=== PATIENT | male | born 1975 | race Hispanic/Latino ===

== ENCOUNTER 2020-04-17 21:53 | Day surgery (SDC) | payer SELFPAY ==
[2020-04-17 18:19] LABS: Absolute Lymphocytes (CBC) 2.1 K/uL (0.7-4.9); Basophils % 0.4 % (0-1.3); Hematocrit 48.1 % (39.6-49.0); Lymphocytes % 21.1 % (15.3-44.8); MPV 8.7 fL (7.6-11.3); RBC Red Blood Cell Count 5.43 M/uL (4.33-5.43)
--- NOTE | 2020-04-17 18:33 | RAD REPORT ---
EXAM DESCRIPTION: RAD - Knee Right 3 View - 04/17/2020 6:26 pm CLINICAL HISTORY: Right knee pain status post injury FINDINGS: Anterior laceration superior aspect of the knee No fracture or dislocation No radiopaque foreign body
--- NOTE | 2020-04-17 19:30 | EDPHYS ---
Physician Documentation [facility] Name: Jorge Bruno Age: 44 yrs Sex: Male : 1975 Arrival Date: 04/17/2020 Time: 16:46 Bed 18 Private MD: ED Physician Dieter Holliday HPI: 04/17 20:11 This 44 yrs old Male presents to ER via Wheelchair with complaints of snw Laceration To Leg. 20:11 The patient has a laceration related to: working, saw, occurred outdoors, and cutting snw wood. The laceration(s) is(are) located on the right quadriceps. Onset: The symptoms/episode began/occurred suddenly, just prior to arrival. Associated signs and symptoms: The patient has no apparent associated signs or symptoms. The patient has not experienced similar symptoms in the past. The patient has not recently seen a physician. Historical: - Allergies: 17:18 No Known Allergies; ph - Home Meds: 17:18 None [Active]; ph - PMHx: 17:18 None; ph - PSHx: 17:18 None; ph - Immunization history:: Adult Immunizations unknown. - Social history:: Smoking status: Patient denies any tobacco usage or history of. ROS: 19:30 Constitutional: Negative for fever, chills, and weight loss, Eyes: Negative for injury, snw pain, redness, and discharge, ENT: Negative for injury, pain, and discharge, Neck: Negative for injury, pain, and swelling, Cardiovascular: Negative for chest pain, palpitations, and edema, Respiratory: Negative for shortness of breath, cough, wheezing, and pleuritic chest pain, Abdomen/GI: Negative for abdominal pain, nausea, vomiting, diarrhea, and constipation, Back: Negative for injury and pain, : Negative for injury, bleeding, discharge, and swelling, MS/Extremity: Negative for injury and deformity, Neuro: Negative for headache, weakness, numbness, tingling, and seizure, Psych: Negative for depression, anxiety, suicide ideation, homicidal ideation, and hallucinations. 19:30 Skin: Positive for laceration(s), of the right quadriceps. Exam: 19:30 Constitutional: This is a well developed, well nourished patient who is awake, alert, snw and in no acute distress. Head/Face: Normocephalic, atraumatic. Eyes: Pupils equal round and reactive to light, extra-ocular motions intact. Lids and lashes normal. Conjunctiva and sclera are non-icteric and not injected. Cornea within normal limits. Periorbital areas with no swelling, redness, or edema. ENT: Nares patent. No nasal discharge, no septal abnormalities noted. Tympanic membranes are normal and external auditory canals are clear. Oropharynx with no redness, swelling, or masses, exudates, or evidence of obstruction, uvula midline. Mucous membranes moist. Neck: Trachea midline, no thyromegaly or masses palpated, and no cervical lymphadenopathy. Supple, full range of motion without nuchal rigidity, or vertebral point tenderness. No Meningismus. Chest/axilla: Normal chest wall appearance and motion. Nontender with no deformity. No lesions are appreciated. Cardiovascular: Regular rate and rhythm with a normal S1 and S2. No gallops, murmurs, or rubs. Normal PMI, no JVD. No pulse deficits. Respiratory: Lungs have equal breath sounds bilaterally, clear to auscultation and percussion. No rales, rhonchi or wheezes noted. No increased work of breathing, no retractions or nasal flaring. Abdomen/GI: Soft, non-tender, with normal bowel sounds. No distension or tympany. No guarding or rebound. No evidence of tenderness throughout. Back: No spinal tenderness. No costovertebral tenderness. Full range of motion. Skin: Warm, dry with normal turgor. Normal color with no rashes, no lesions, and no evidence of cellulitis. MS/ Extremity: Pulses equal, no cyanosis. Neurovascular intact. Full, normal range of motion. Large laceration to right distal thigh with avulsed, cut muscle, bleeding controlled Neuro: Awake and alert, GCS 15, oriented to person, place, time, and situation. Cranial nerves II-XII grossly intact. Motor strength 5/5 in all extremities. Sensory grossly intact. Cerebellar exam normal. Normal gait. Psych: Awake, alert, with orientation to person, place and time. Behavior, mood, and affect are within normal limits. Vital Signs: 17:15 BP 148 / 101; Pulse 77; Resp 18; Temp 98.2; Pulse Ox 99% on R/A; ph 18:19 BP 138 / 81; Pulse 79; Resp 16; Pulse Ox 98% ; bp MDM: 18:14 Patient medically screened. snw 19:24 Data reviewed: vital signs, nurses notes. Data interpreted: Pulse oximetry: on room air snw is 98 %. Interpretation: normal. Counseling: I had a detailed discussion with the patient and/or guardian regarding: the historical points, exam findings, and any diagnostic results supporting the discharge/admit diagnosis, radiology results, the need for further work-up and treatment in the hospital, for OR wound wash out and closure. Physician consultation: George Jenkins MD was called at 18:35, was contacted at 18:35, regarding admission, patient's condition, need to come to ED to see patient, would like further tests performed, EKG, Chest x-ray, in the emergency department to see patient at 19:00, OR consent discussed and pt voices understanding. 04/17 18:07 Order name: CBC with Diff; Complete Time: 18:25 snw 04/17 18:07 Order name: Chem 7; Complete Time: 18:36 snw 04/17 18:07 Order name: Knee Right 3 View XRAY; Complete Time: 18:36 snw 04/17 18:56 Order name: Chest Single View; Complete Time: 20:05 EDMS 04/17 18:08 Order name: Consult Surgery-George Jenkins MD (GENERAL SURGERY) sn 04/17 18:50 Order name: EKG - Nurse/Tech; Complete Time: 19:15 Administered Medications: 18:10 Drug: morphine 4 mg Route: IVP; Site: right forearm; bp 22:19 Follow up: Response: No adverse reaction 18:10 Drug: Zofran (Ondansetron) 4 mg Route: IVP; Site: right forearm; bp 22:19 Follow up: Response: No adverse reaction 18:10 Drug: NS 0.9% 1000 ml Route: IV; Rate: 1 bolus; Site: right forearm; bp 22:19 Follow up: Response: No adverse reaction; IV Status: Completed infusion 18:10 Drug: Tetanus-Diphtheria Toxoid Adult 0.5 ml {Fish And Game Warden: Dr. TATTOFF. Exp: 12/30/2021. Lot #: [id number]. } Route: IM; Site: right deltoid; 22:18 Follow up: Response: No adverse reaction 18:10 Drug: Ancef 1 grams Route: IVPB; Site: right forearm; bp 22:18 Follow up: Response: No adverse reaction; IV Status: Completed infusion ah Disposition: 04/17/20 19:30 Hospitalization ordered by George Jenkins for Observation. Preliminary diagnosis is Laceration of adductor muscle, fascia and tendon of right thigh - with probable wood particle contamination from saw. - Bed requested for Operating Room. - Status is Observation. ah - Condition is Stable. - Problem is new. - Symptoms are unchanged. Addendum: 04/22/2020 07:09 Co-signature as Attending Physician, Dieter Holliday MD. m Signatures: Dispatcher [employer] EDOK Rebekah Sharma, APPRENTICE ELECTRICIAN-C APPRENTICE ELECTRICIAN-Csnw Eve Iniguez, RN RN Lang Gonzalez, RN RN Liyah Merrill, RN RN Dieter Earl MD MD [id number] Corrections: (The following items were deleted from the chart) 04/17 18:56 18:50 Chest Pa And Lat (2 Views)+RAD.RAD.BRZ ordered. EDOK EDMS 21:56 19:30 Hospitalization Ordered by George Jenkins MD for Observation. Preliminary diagnosis ah is Laceration of adductor muscle, fascia and tendon of right thigh - with probable wood particle contamination from saw. Bed requested for Operating Room. Status is Observation. Condition is Stable. Problem is new. Symptoms are unchanged. snw
--- NOTE | 2020-04-17 19:30 | ER ---
Nurse's Notes [facility] Name: Jorge Bruno Age: 44 yrs Sex: Male : 1975 Arrival Date: 04/17/2020 Time: 16:46 Bed 18 Private MD: Diagnosis: Laceration of adductor muscle, fascia and tendon of right thigh-with probable wood particle contamination from saw Presentation: 04/17 17:15 Chief complaint: Patient states: Cut leg w/ saw, large laceration noted above R knee, ph bleeding controlled. Coronavirus screen: Patient denies a cough. Patient denies shortness of breath or difficulty breathing. Patient denies measured and/or subjective temperature greater than 100.4F prior to today's visit. Patient denies travel on a cruise ship or to a country the [facility] currently lists as an affected area. Patient denies contact with known and/or suspected case of COVID-19. Ebola Screen: No symptoms or risks identified at this time. Complicating Factors: There are no complicating factors for this patient. Initial Sepsis Screen: Does the patient meet any 2 criteria? No. Patient's initial sepsis screen is negative. Does the patient have a suspected source of infection? No. Patient's initial sepsis screen is negative. Risk Assessment: Do you want to hurt yourself or someone else? Patient reports no desire to harm self or others. Onset of symptoms was April 17, 2020. 17:15 Method Of Arrival: Wheelchair 17:15 Acuity: CATHY 4 ph Triage Assessment: 17:20 General: Appears in no apparent distress. uncomfortable, Behavior is calm, cooperative, bp appropriate for age. Pain: Complains of pain in right quadriceps. EENT: No deficits noted. Neuro: No deficits noted. Cardiovascular: No deficits noted. Respiratory: No deficits noted. GI: No signs and/or symptoms were reported involving the gastrointestinal system. : No signs and/or symptoms were reported regarding the genitourinary system. Derm: No deficits noted. Musculoskeletal: Circulation, motion, and sensation intact. Injury Description: Laceration sustained to right quadriceps is contaminated, jagged, 7.6 to 20 cm long, not bleeding, was sustained 1-2 hours ago. is bleeding moderately. Historical: - Allergies: 17:18 No Known Allergies; ph - Home Meds: 17:18 None [Active]; ph - PMHx: 17:18 None; ph - PSHx: 17:18 None; ph - Immunization history:: Adult Immunizations unknown. - Social history:: Smoking status: Patient denies any tobacco usage or history of. Screenin:20 Abuse screen: Denies threats or abuse. Denies injuries from another. Nutritional bp screening: No deficits noted. Tuberculosis screening: No symptoms or risk factors identified. Fall Risk None identified. Assessment: 17:20 General: SEE TRIAGE NOTE. bp 17:52 General: PT EVALUATED BY PROVIDER. PT TO REMAIN NPO. LAST PO INTAKE 1330. bp 18:19 Reassessment: XRAY COMPLETED. ALL CURRENT ORDERS COMPLETED. bp 20:00 Reassessment: using language line, explained surgical consent. Pt voiced understanding. 21:45 Reassessment: Pt to OR with nurse. Vital Signs: 17:15 BP 148 / 101; Pulse 77; Resp 18; Temp 98.2; Pulse Ox 99% on R/A; ph 18:19 BP 138 / 81; Pulse 79; Resp 16; Pulse Ox 98% ; bp ED Course: 16:46 Patient arrived in ED. as 17:17 Triage completed. ph 17:18 Arm band placed on Patient placed in an exam room, on a stretcher. ph 17:20 Patient has correct armband on for positive identification. Bed in low position. Call bp light in reach. Side rails up X2. 17:37 Rebekah Sharma FNP-C is [facility]. snw 17:37 Dieter Holliday MD is Attending Physician. snw 18:00 Inserted saline lock: 18 gauge in right forearm, using aseptic technique. bp 18:11 Liyah Webber, RN is Primary Nurse. ah 18:26 Knee Right 3 View XRAY In Process Unspecified. EDMS 19:05 Chest Single View In Process Unspecified. EDMS 19:27 George Jenkins MD is Hospitalizing Provider. snw 21:55 No provider procedures requiring assistance completed. Patient admitted, IV remains in place. Administered Medications: 18:10 Drug: morphine 4 mg Route: IVP; Site: right forearm; bp 22:19 Follow up: Response: No adverse reaction 18:10 Drug: Zofran (Ondansetron) 4 mg Route: IVP; Site: right forearm; bp 22:19 Follow up: Response: No adverse reaction 18:10 Drug: NS 0.9% 1000 ml Route: IV; Rate: 1 bolus; Site: right forearm; bp 22:19 Follow up: Response: No adverse reaction; IV Status: Completed infusion 18:10 Drug: Tetanus-Diphtheria Toxoid Adult 0.5 ml {Menhaden Vessel Pilot: [employer]. Exp: bp 12/30/2021. Lot #: [id number]. } Route: IM; Site: right deltoid; 22:18 Follow up: Response: No adverse reaction 18:10 Drug: Ancef 1 grams Route: IVPB; Site: right forearm; bp 22:18 Follow up: Response: No adverse reaction; IV Status: Completed infusion Outcome: 19:30 Decision to Hospitalize by Provider. snw 21:55 Admitted to OR accompanied by nurse, via stretcher, with chart. 21:55 Condition: stable 21:55 Instructed on the need for admit. 21:56 Patient left the ED. Signatures: Dispatcher [employer] EDMS Rebekah Sharma FNP-C BANK TELLER-Lexii Zuñiga Patricia, RN RN Lang Fuller RN RN Liyah Merrill RN RN Corrections: (The following items were deleted from the chart) 18:19 17:00 General: SEE TRIAGE NOTE. bp bp
--- NOTE | 2020-04-17 19:58 | RAD REPORT ---
EXAM DESCRIPTION: TOMPuneet Single View04/17/2020 7:05 pm CLINICAL HISTORY: Preop exam for knee surgery COMPARISON: none FINDINGS: The lungs appear clear of acute infiltrate. The heart is normal size IMPRESSION: No acute abnormalities displayed
[~2020-04-17 21:53] MED LIST: CEFAZOLIN/SWI 1gm 1 GM/10 ML SYR ONE; MORPHINE 4 MG/ML SYR ONE; NA CHLORIDE 0.9% 1,000 ML ONE; ONDANSETRON 4 MG/2 ML VIAL ONE; TETANUS & DIPHTHERIA TOX,ADULT 0.5 ML VIAL ONE
[2020-04-17] MEDS ORDERED: Ringers Lactate 1,000 ML IV ONE (22:03)
--- NOTE | 2020-04-17 22:36 | PREOPHP ---
Date of Admission: 04/17/2020 Reason For Admission: Laceration, right thigh. History Of Present Illness: The patient is a 44-year-old gentleman who was working with a saw, accid entally cut his right anterior thigh. He came to the emergency room. He denies any neurovascular de ficits. No active bleeding. He was evaluated and I was asked to take the patient to the OR for puls e irrigation, debridement, and closure of complex laceration. He is awake, alert. No sore throat, r unny nose, cough, headaches, or dizziness. No chest pain. No fever or chills. Review of Systems: Otherwise unremarkable. Past Medical History: Negative. Past Surgical History: Negative. Allergies: NO ALLERGIES. Social History: Patient denies smoking or drinking. Family History: Noncontributory. Physical Examination: Vital Signs: Stable. He is afebrile. Neurological: He is awake, alert, oriented x3. Head and Neck: Cranial nerves 2 through 12 are grossly within normal limits. No neck masses. No JV D. Throat clear. Neck supple. Chest: Clear. Heart: S1 and S2. Abdomen: Soft. Extremities: Neurovascularly intact with full range of motion. On the right lower extremity, there is a 10 x 3 cm complex laceration going all the way through the subcutaneous tissue into the muscle b nikhil. There is some dirt and external particles in the wound. Imaging: X-ray shows no foreign body. Assessment: Complex laceration, right anterior thigh. Plan: Admit n.p.o., IV fluid, IV antibiotics, including Ancef and tetanus. Into the OR for irrigati on, debridement, and closure of a complex right thigh laceration. Patient understands the risks, rodney efits, and alternatives and agrees to procedure. /MODL Voice ID: [id number]
[2020-04-17] MEDS ORDERED: FENTANYL CITR 100 MCG/2 ML ONE (22:43)
[2020-04-17] MEDS ORDERED: propofoL 200 MG/20 ML VIAL IV ONE (22:43)
[2020-04-17] MEDS ORDERED: ONDANSETRON 4 MG/2 ML VIAL ONE (22:43)
[2020-04-17] MEDS ORDERED: MIDAZOLAM HCL 2 MG/2 ML INJ ONE (22:43)
[2020-04-17] MEDS ORDERED: LIDOCAINE 1% MPF 5 ML VIAL ONE (22:43)
[2020-04-17] MEDS ORDERED: dexAMETHasone 4 MG/ML VIAL ONE (22:45)
[2020-04-17] MEDS ORDERED: BUPIVACAINE 0.5% PF 10 ML VIAL ONE (23:03)
[2020-04-17] MEDS ORDERED: CEFAZOLIN SODIUM 1 GM/VIAL ONE (23:33)
[2020-04-17] MEDS ORDERED: HYDROCODONE/APAP 7.5/325 MG TAB ONE (23:33)
[2020-04-18 00:12] VITALS: BP 137/86; TEMP 97.1; O2SAT 99
--- NOTE | 2020-04-18 03:52 | OP ---
Date of Procedure: 04/17/2020 Surgeon: George Jenkins MD Preoperative Diagnosis: Complex laceration, right thigh. Postoperative Diagnosis: Complex laceration, right thigh. Procedure Performed: Irrigation, debridement, and closure of complex right thigh laceration 10 x 3 c m. Estimated Blood Loss: Minimal. Specimen: Debridement tissue. Findings: As above. Anesthesia: General. Complications: None. Patient tolerated the procedure in stable condition and taken to Recovery in good general condition. Procedure In Detail: The patient was brought to the OR, placed in supine position, general anesthesi a begun. Patient was prepped and draped in usual sterile fashion. Marcaine 0.5% was infiltrated loc ally. Then 15 blade was used to excise denuded edges of the wound until good healthy dermis and epid ermis could be identified, which was approximately 5 mm to 1 cm in length. Muscle with fas saúl opened as well on the anterior aspect. Pulse irrigation was utilized at this time. Entire wound was cleaned out. Pulse irrigated and bleeding then was controlled with cautery. Then 3-0 Vicryl wa s used to close the fascia of the muscle and then 2-0 chromic used to approximate the subcutaneous ti ssue and sanna were used to loosely close the skin after skin was mobilized and a sterile dressing was applied. Patient was awakened and taken to the recovery room in good general condition. Discharge Note: Patient will go to Day Surgery and home when stable. Disposition: Home. Condition: Stable. Discharge Instructions: Resume home medications and diet. Activity as tolerated. No heavy lifting. Remove outer dressing in 2 days. Shower. Keep wound clean and dry. Follow up in my office on . Call for appointment. Tylenol No. 3 one tablet p.o. q.4 p.r.n. pain, Keflex 5 mg p.o. q.6. Cru tc training will be provided. Dressing will consist of gauze, Kerlix. /MODL Voice ID: [id number] Report ID: [id number]
--- NOTE | 2020-04-18 16:30 | EKG ---
Test Date: 2020-04-17 Test Time: 19:00:57 Poultry Barn Manager: SARAH MEASUREMENT RESULTS: Intervals: Rate: 67 [place]: 166 QRSD: 88 QT: 394 QTc: 416 [place]: P: 59 [place]: 166 QRS: 78 T: 34 INTERPRETIVE STATEMENTS: Normal sinus rhythm Normal ECG No previous ECG available for comparison Electronically Signed On 04-18-20 16:27:40 CDT by Balwinder Oliva
== END 2020-04-18 00:20 | disposition home or self-care (01) ==
LOC: ER 21:53 → DS 21:53 → ER 04-18 00:20
PROVIDERS: ATTEND Emergency Medicine
PROC: 0KQQ0ZZ Repair Right Upper Leg Muscle, Open Approach (ICD-10-PCS; principal; 2020-04-17 22:00)
DX: S71.111A Laceration without foreign body, right thigh, initial encounter (principal); W29.3XXA Contact with powered garden and outdoor hand tools and machinery, initial encounter; Y93.89 Activity, other specified; Y92.9 Unspecified place or not applicable; Z23 Encounter for immunization
CPT/HCPCS: 36415; 71045; 80048; 85025; 88304; 90471; 90714; 93005; 96365; 96366; 96375; 99285; J0690; J2250; J2405; J2704; J3010; J7030; J7120